=== PATIENT | female | born 1990 | race Caucasian/White ===

== ENCOUNTER → 2024-10-13 18:22 | Outpatient (REF) | payer OTHER, SELFPAY | LOC: RAD 18:22 | PROVIDERS: ATTENDING PHYSICIAN Family Medicine | DX: M25.552 Pain in left hip (principal) | CPT/HCPCS: 72202; 73502 ==

== ENCOUNTER → 2024-12-19 06:58 | Outpatient (REF) | payer OTHER, SELFPAY | LOC: PAVMRI 06:58 | PROVIDERS: ATTENDING PHYSICIAN Family Medicine | DX: M25.552 Pain in left hip (principal); M54.16 Radiculopathy, lumbar region | CPT/HCPCS: 72148 ==

== ENCOUNTER → 2024-12-30 08:25 | Outpatient (REF) | payer OTHER, SELFPAY | LOC: PAVMRI 08:25 | PROVIDERS: ATTENDING PHYSICIAN Family Medicine | DX: G95.0 Syringomyelia and syringobulbia (principal); G93.5 Compression of brain | CPT/HCPCS: 70553; 72141; A9575 ==

== ENCOUNTER → 2025-03-16 15:19 | Outpatient (REF) | payer OTHER, SELFPAY | LOC: RAD 15:19 | PROVIDERS: ATTENDING PHYSICIAN Nurse Practitioner Obstetrics & Gynecology; FAMILY PHYSICIAN Family Medicine | DX: N83.202 Unspecified ovarian cyst, left side (principal) | CPT/HCPCS: 76830; 76856 ==